=== PATIENT | female | born 1985 | race Two or more races ===

== ENCOUNTER 2024-07-29 22:38 | Emergency (ER) | payer MEDICAID, OTHER ==
[~2024-07-29] VITALS: Ht 152.4 cm; Wt 58.1 kg
[2024-07-30 00:05] LABS: Urine Bacteria FEW /hpf (None Seen); Urine Blood 1+ /uL (Negative); Urine Clarity Clear (Clear); Urine Color Light-Yellow (Yellow); Urine Mucus FEW (None Seen); Urine Protein, UAD Negative (Negative); Urine Specific Gravity 1.011 (1.001-1.035); Urine Urobilinogen Normal (Negative); Urine WBC 4 /hpf (0 - 5)
[2024-07-30] MEDS: DICYCLOMINE HCL 10 MG CAP PO ONE (00:14)
[2024-07-30 00:15] VITALS: BP 116/90; PULSE 64; RESP 18; TEMP 98.6; O2SAT 98
[2024-07-30] MEDS ORDERED: DICY10CA PO (00:54)
== END 2024-07-30 00:59 | disposition home or self-care (01) ==
LOC: ER 22:38
DX: R10.32 Left lower quadrant pain (principal)
CPT/HCPCS: 74176; 81001